=== PATIENT | female | born 1990 | race Caucasian/White ===

== ENCOUNTER 2021-02-02 12:11 | Emergency (ER) | payer SELFPAY ==
[~2021-02-02] VITALS: Ht 170.2 cm; Wt 61.2 kg
== END 2021-02-02 13:49 | disposition home or self-care (01) ==
LOC: ED 12:11
DX: S93.401A Sprain of unspecified ligament of right ankle, initial encounter (principal); X50.9XXA Other and unspecified overexertion or strenuous movements or postures, initial encounter
CPT/HCPCS: 73610; 99283-25

== ENCOUNTER 2023-11-10 10:27 | Inpatient (IN) | payer OTHER ==
[2023-11-10 11:10] LABS: HEMATOCRIT 33.3 % (35.0-50.0); HEMOGLOBIN 11.5 g/dL (12.0-18.0); MCH 29.5 (27-36); MCHC 34.4 g/dl (30-36); MCV 85.7 fl (81-99); RBC 3.89 M/ul (4.3-5.7); RDW 14.2 (10.5-15.0)
[2023-11-10 11:21] LABS: CREATININE, SERUM 0.74 mg/dL (0.55-1.02)
[2023-11-10 12:13] LABS: CREATININE, RANDOM URINE 39.76 mg/dL (NOT ESTABLISHED); PROTEIN/CREATININE RATIO 0.15 mg/mg (0.010-0.107)
[2023-11-10 13:10] VITALS: BP 146/88
[2023-11-10 13:31] LABS: AMPHETAMINES, URINE NEGATIVE (NEGATIVE); BARBITURATES, URINE NEGATIVE (NEGATIVE); BENZODIAZEPINE, URINE NEGATIVE (NEGATIVE); BUPRENORPHINE, URINE NEGATIVE (NEGATIVE); CANNABINOID, URINE NEGATIVE (NEGATIVE); COCAINE, URINE NEGATIVE (NEGATIVE); ECSTASY, URINE NEGATIVE (NEGATIVE); FENTANYL, URINE NEGATIVE (NEGATIVE); METHADONE, URINE NEGATIVE (NEGATIVE); OPIATES, URINE NEGATIVE (NEGATIVE); OXYCODONE, URINE NEGATIVE (NEGATIVE); PHENCYCLIDINE, URINE NEGATIVE (NEGATIVE)
[2023-11-10 13:49] LABS: HEMATOCRIT 36.4 % (35.0-50.0); HEMOGLOBIN 12.4 g/dL (12.0-18.0); MCH 29.2 (27-36); MCV 85.9 fl (81-99); RBC 4.24 M/ul (4.3-5.7); RDW 13.8 (10.5-15.0)
[2023-11-10 14:29] LABS: ABO A; ANTIBODY SCREEN POSITIVE; RH NEGATIVE
[2023-11-10 15:15] LABS: ANTIBODY IDENTIFICATION ANTI-D
--- NOTE | 2023-11-10 18:53 | PR ---
[facility] [address] [facility] [place], [place] [address] Signed Progress Notes IP Datetime Report Generated by CPN: 11/10/2023 18:53 PROGRESS NOTES: [id number] Impression: Normal Progression of Labor; Reassuring Heart Rate Procedures: Artificial ROM; Sterile Vag Exam Plan: Continue Present Management VITAL SIGNS: [id number] Vital Signs: Reviewed VS Notable Details: HTN--not severe EXAM: [id number] Dilatation: 4.0 Effacement: 90 Station: -2 Contractions: not picking up well MEMBRANES: [id number] Comments: Still not too comfortable with epidural. AROM attempted but no fluid seen. Has known low fluid. Will continue with close observation. FETUS A: [id number] FHR Baseline: 140 Variability: Moderate 6-25bpm Accelerations: 15X15 FHR Category: Category II Presentation: Vertex FETUS B: [id number] Signing Physician: Salma Anderson MD Copies: ~ *Electronically Signed* 11/10/23 185 SALMA ANDERSON MD PATIENT NAME: KIANNA CHRISTINA MARCOS PROGRESS NOTE DATE OF : 90 PHYSICIAN: SALMA ANDERSON MD RPT #: [id number] REPORT IS CONFIDENTIAL AND NOT TO BE RELEASED WITHOUT AUTHORIZATION
--- NOTE | 2023-11-10 19:43 | PR ---
[facility] [address] [facility] [place], [place] [address] Signed Progress Notes IP Datetime Report Generated by CPN: 11/10/2023 19:43 PROGRESS NOTES: [id number] Impression: Normal Progression of Labor; Reassuring Heart Rate Procedures: Sterile Vag Exam Plan: Continue Present Management; Anesthesia Consult VITAL SIGNS: [id number] Vital Signs: Reviewed VS Notable Details: HTN--not severe EXAM: [id number] Dilatation: 5.0 Effacement: 90 Station: -2 Contractions: q 3 min MEMBRANES: [id number] Comments: Still not comfortable with epidural. status reassuring. Will have anesthesia reevaluate. FETUS A: [id number] FHR Baseline: 140 Variability: Moderate 6-25bpm Accelerations: 15X15 Decelerations: None FHR Category: Category II Presentation: Vertex FETUS B: [id number] Signing Physician: Salma Anderson MD Copies: ~ *Electronically Signed* 11/10/231942 SALMA ANDERSON MD PATIENT NAME: KIANNA CHRISTINA PROGRESS NOTE DATE OF : 90 PHYSICIAN: SALMA ANDERSON MD RPT #: [id number] REPORT IS CONFIDENTIAL AND NOT TO BE RELEASED WITHOUT AUTHORIZATION
[2023-11-11 05:29] LABS: MCH 29.6 (27-36); MCHC 34.5 g/dl (30-36); MCV 85.9 fl (81-99); RBC 3.73 M/ul (4.3-5.7)
[2023-11-11 06:35] LABS: ABO A; ANTIBODY SCREEN POSITIVE; RH NEGATIVE; RHIG VIAL 1 RG22K01-O
[2023-11-11 06:36] LABS: FETAL HEMOGLOBIN SCREEN NEGATIVE; RHIG DOSE 1; RHIG STATUS CANDIDATE
--- NOTE | 2023-11-11 09:35 | PR ---
[facility] [address] [facility] [place], [place] [address] Signed PP Progress Notes Datetime Report Generated by CPN: 11/11/2023 09:35 SUBJECTIVE: [id number] Pain: Within Normal Limits Flatus: Yes Bowel Movement: No Vital Signs: [id number] Vital Signs: Reviewed; Within Normal Limits Cardiovascular: Normal Respiratory: Normal Abdomen/Uterus: Normal Lochia: Normal Vulva/Perineum: Not Done Breasts: Not Done CVA Tenderness: Normal Extremities: Normal Incision: Not Applicable Progress: Normal Exam Comments: Fundus firm U-2 nontender IMPRESSION/PLAN/PROCEDURES: [id number] Impression: Normal Progression Plan: Discharge Progress Notes: Pt seen and examined. Doing well. Ambulating, voiding, and tolerating full diet. Pain and lochia minimal. . No fevers/chills or other concerns. Desires d/c home. Undecided on pp contraception. No questions or other concerns. Working on paperwork for transition of baby to bio-parents. Signing Physician: Aminata Jain DO Copies: ~ *Electronically Signed* 11/11/23 0917 AMINATA JAIN (PRINCE) DO PATIENT NAME: KIANNA CHRISTINA PROGRESS NOTE DATE OF : 90 PHYSICIAN: AMINATA JAIN) DO RPT #: [id number] REPORT IS CONFIDENTIAL AND NOT TO BE RELEASED WITHOUT AUTHORIZATION
--- NOTE | 2023-11-13 14:18 | PATH ---
[facility] [address] [place], [place] [address] Signed SPECIMEN(S): A PLACENTA SPECIMEN SOURCE: A. PLACENTA CLINICAL HISTORY: Mother's age: 33. OB history: G4, P2, A1. Gestational age: 37. Infant's weight: 5 pounds 4 ounces score: 8/9. Length of umbilical cord at delivery: unknown. Rh negative. Antibody screen: negative. Maternal serologies: Rubella positive, RPR negative, hepatitis screen negative, GBS negative. Specific issues of concern: small placenta, IUGR. FINAL PATHOLOGIC DIAGNOSIS: Placenta: - Mature 245 gram placenta with three-vessel umbilical cord (less than 3rd percentile for estimated gestational age). - Chronic chorioamnionitis. - Negative for significant funisitis. - Focal slight villous and perivillous fibrin deposition and minimal calcifications. - Negative for significant placental disc infarction. JVR:clv MICROSCOPIC EXAMINATION: Histologic sections of all submitted blocks are examined by light microscopy. These findings, together with the gross examination, support the pathologic diagnosis. GROSS DESCRIPTION: The specimen, labeled and designated "Christina Louisa, " and designated on the requisition "placenta," is received fresh and placed in formalin and consists of sheffield discoid placenta with the following parameters: Umbilical cord: Insertion eccentric, measurement 28.5 x 1.3 cm; trivascular. Cord coiling index (per 10 cm): Four. Lesions: Not grossly identified. Membranes: Insertion site: Marginal, pink and translucent. Intact. Other: Not grossly identified. Chorionic Plate: Normal radiating vascular pattern, blue-purple and shiny. Lesions: Not grossly identified. Other: Not grossly identified. Maternal Surface: Normal cotyledons, intact. Lesions: Not grossly identified. PATIENT NAME: KIANNA CHRISTINA PATHOLOGY DATE OF : 89 REPORT #: [id number] PHYSICIAN: MONICA WHEELER PCP: NO PRIMARY CARE PHYSICIAN REPORT IS CONFIDENTIAL AND NOT TO BE RELEASED WITHOUT AUTHORIZATION [facility] [address] [place], [place] [address] Signed Measurement: 17.6 x 13.5 x 2.0 cm. 245 g Cut Surface: Maroon and spongy. Lesions: Not grossly identified. Basal plate fibrin 0.1 cm in thickness. Other Findings: Not grossly identified. Cassette Summary: (A1) membranes and umbilical cord (A2) placenta parenchyma (A3) placenta parenchyma (A4) placenta parenchyma FB (under the direct supervision of a pathologist) The Gross Description was prepared using a voice recognition system. The report was reviewed for accuracy; however, sound-alike word errors, addition and/or deletions may occur. If there is any question about this report, please contact Client Services. PERFORMING LABORATORY: Technical component was performed by [facility], [address] [place] [id number] (CLIA# [id number]). Professional interpretation was performed by [facility], [address] [place] [phone] (CLIA#: [id number]). Diagnostician: Brandon Kathleen MD Pathologist Electronically Signed 11/13/2023 Copies: ~ PATIENT NAME: KIANNA CHRISTINA PATHOLOGY DATE OF : 90 REPORT #: [id number] PHYSICIAN: MONICA PATHOLOGY PCP: NO PRIMARY CARE PHYSICIAN REPORT IS CONFIDENTIAL AND NOT TO BE RELEASED WITHOUT AUTHORIZATION
== END 2023-11-11 13:16 | disposition home or self-care (01) | DRG 806 ==
LOC: FBCO 10:27 → US 11:00 → FBCO 11:00 → FBC 12:58
PROVIDERS: ADMIT Obstetrics & Gynecology; ATTEND Obstetrics & Gynecology
PROC: 10E0XZZ Delivery of Products of Conception, External Approach (ICD-10-PCS; principal; 2023-11-10)
PROC: 0KQM0ZZ Repair Perineum Muscle, Open Approach (ICD-10-PCS; 2023-11-10)
PROC: 3E0R3BZ Introduction of Anesthetic Agent into Spinal Canal, Percutaneous Approach (ICD-10-PCS; 2023-11-10)
PROC: 00HU33Z Insertion of Infusion Device into Spinal Canal, Percutaneous Approach (ICD-10-PCS; 2023-11-10)
PROC: 4A033R1 Measurement of Arterial Saturation, Peripheral, Percutaneous Approach (ICD-10-PCS; 2023-11-10)
PROC: 10907ZC Drainage of Amniotic Fluid, Therapeutic from Products of Conception, Via Natural or Artificial Opening (ICD-10-PCS; 2023-11-10)
DX: O13.4 Gestational [pregnancy-induced] hypertension without significant proteinuria, complicating childbirth (principal); O41.03X0 Oligohydramnios, third trimester, not applicable or unspecified; Z37.0 Single live birth; O76 Abnormality in fetal heart rate and rhythm complicating labor and delivery; Z3A.37 37 weeks gestation of pregnancy; O24.429 Gestational diabetes mellitus in childbirth, unspecified control; O70.1 Second degree perineal laceration during delivery; O69.81X0 Labor and delivery complicated by cord around neck, without compression, not applicable or unspecified; O14.94 Unspecified pre-eclampsia, complicating childbirth; O36.5930 Maternal care for other known or suspected poor fetal growth, third trimester, not applicable or unspecified
CPT/HCPCS: 01960; 36415; 76815; 76818; 76819; 80307; 82565; 82570; 82803; 83030; 84156; 84450; 84520; 84550; 85027; 86850; 86870; 86900; 86901; A9270; J2590; J2790